=== PATIENT | male | born 1995 | race African-American/Black ===

== ENCOUNTER 2022-07-19 18:45 | Emergency (ER) | payer MEDICAID ==
[~2022-07-19] VITALS: Ht 188 cm; Wt 84.1 kg
[2022-07-19 18:59] VITALS: BP 129/73
[2022-07-19] MEDS ORDERED: CETI1TAB MT (21:50)
== END 2022-07-19 22:00 | disposition home or self-care (01) ==
LOC: ER 18:45
DX: J06.9 Acute upper respiratory infection, unspecified (principal); Z90.49 Acquired absence of other specified parts of digestive tract; Z20.822 Contact with and (suspected) exposure to COVID-19
CPT/HCPCS: 87426; 87804; 99283; C9803